=== PATIENT | female | born 1960 | race Caucasian/White ===

== ENCOUNTER → 2016-12-09 | Outpatient (CLI) | payer MEDICAID ==
[~2016-12-09] MED LIST: 'XANAX1 MG PO; AMLODIPINE BESY10 MG PO; ASMANEX220 MCG INH; ATARAX,VISTARIL50 MG PO; BUPROPION HCL150 MG PO; BUPROPION HYDR150 M1 PO; FLUOXETINE20 M1 PO; HYDROXYCHLOROQ200 M1 PO; HYDROXYCHLOROQ200 MG PO; HYDROXYZINE50 MG PO; MAXALT MLT10 MG PO; NORFLEX100 MG PO; OMEPRAZOLE D/R20 MG PO; OMEPRAZOLE20 MG PO; PERCOCET 325 MG1 TA7 PO; PROVENTIL0.09 MG/A1 INH; RIZATRIPTAN BEN10 M1 PO; SPIRIVA -- 3018 MCG INH; SPIRIVA -- 3018 MCG PO; TOPAMAX100 M1 PO; TOPIRAMATE100 MG PO; TORADOL10 MG PO; TRAZADONE HYDR100 MG PO; VENTOLIN0.09 MG/AC INH; XANAX1 MG PO
[2016-12-09 10:03] LABS: BASO # 0.1 10*3/uL (0.0-0.1); BASO % 0.6 % (0.0-1.0); EOS # 0.7 10*3/uL (0.0-0.4); EOS % 5.8 % (1.0-4.0); HEMATOCRIT 43.9 % (37.0-47.0); HEMOGLOBIN 14.2 g/dl (12.0-16.0); LYMPH # 3.9 10*3/uL (1.3-4.4); LYMPH % 35.1 % (27.0-41.0); MEAN CELL VOLUME 95.2 fl (81.0-99.0); MEAN CORPUSCULAR HGB 30.8 pg (27.0-31.0); MEAN CORPUSCULAR HGB CONC 32.3 g/dl (33.0-37.0); MEAN PLATELET VOLUME 9.4 fl (9.6-12.3); MONO # 0.7 10*3/uL (0.1-1.0); MONO % 5.9 % (3.0-9.0); NEUT # 5.8 10*3/uL (2.3-7.9); NEUT % 52.2 % (47.0-73.0); PLATELET COUNT AUTOMATED 254 10*3/uL (130-400); RED BLOOD COUNT 4.61 10*6/uL (4.10-5.10); RED CELL DISTRI WIDTH 13.6 % (0-14.5); WHITE BLOOD COUNT 11.2 10*3/uL (4.8-10.8)
[2016-12-09 10:11] LABS: URINE AMPHETAMINES < 1000 (1000ng/ml); URINE BARBITURATES < 200 (200ng/ml); URINE COCAINE < 300 (300ng/ml)
[2016-12-09 10:22] LABS: HEMOGLOBIN A1c 5.9 % (4.8-5.6)
[2016-12-09 10:29] LABS: ALBUMIN 3.7 gm/dl (3.1-4.5); BILIRUBIN, TOTAL 0.2 mg/dl (0.2-1.0); POTASSIUM 3.4 mmol/L (3.5-5.1); TOTAL PROTEIN 7.9 gm/dL (6.4-8.2)
[2016-12-09 10:36] LABS: THYROID STIM HORMONE (HS) 1.09 uIU/ml (0.358-4.75)
[2016-12-10 05:08] LABS: MICRO ALBUMIN/CRE RATIO <6.5 (0.0-30.0)
== END | disposition home or self-care (01) ==
LOC: LAB 09:24
PROVIDERS: Family Medicine
DX: E11.22 Type 2 diabetes mellitus with diabetic chronic kidney disease (principal); N18.3 Chronic kidney disease, stage 3 (moderate); E78.5 Hyperlipidemia, unspecified; E03.9 Hypothyroidism, unspecified; E55.9 Vitamin D deficiency, unspecified; M35.9 Systemic involvement of connective tissue, unspecified; F99 Mental disorder, not otherwise specified; Z72.0 Tobacco use

== ENCOUNTER → 2017-02-16 | Outpatient (CLI) | payer MEDICAID ==
[2017-02-16 10:12] LABS: BILIRUBIN NEGATIVE (NEGATIVE); BLOOD NEGATIVE (NEGATIVE); CLARITY CLEAR (CLEAR); COLOR YELLOW (YELLOW); GLUCOSE NEGATIVE (NEGATIVE); KETONE TRACE (NEGATIVE); LEUKO ESTERASE NEGATIVE (NEGATIVE); NITRITE NEGATIVE (NEGATIVE); PH 5.5 (5.0-9.0); UROBILINOGEN 0.2 E.U./dl (0.2-1.0)
[2017-02-16 10:17] LABS: HEMATOCRIT 42.3 % (37.0-47.0); HEMOGLOBIN 13.2 g/dl (12.0-16.0)
[2017-02-16 10:36] LABS: BACTERIA 1+; MUCOUS 1+
[2017-02-16 10:39] LABS: CREATININE 1.66 mg/dL (0.55-1.02); MAGNESIUM 2.1 mg/dL (1.5-2.1); PHOSPHOROUS 3.1 mg/dL (2.5-4.9); POTASSIUM 4.5 mmol/L (3.5-5.1)
[2017-02-16 11:18] LABS: VITAMIN D, 25-HYDROXY 20.4 ng/mL (30-100)
[2017-02-16 11:19] LABS: PTH INTACT 33.1 pg/mL (14.0-72.0)
== END | disposition home or self-care (01) ==
LOC: US 12-21 14:00 → LAB 09:12 → US 09:30
PROVIDERS: Internal Medicine Nephrology
DX: N18.3 Chronic kidney disease, stage 3 (moderate) (principal)

== ENCOUNTER → 2017-05-30 | Outpatient (CLI) | payer MEDICAID | END | disposition home or self-care (01) | LOC: RAD 11:12 | DX: M47.896 Other spondylosis, lumbar region (principal); M47.897 Other spondylosis, lumbosacral region ==

== ENCOUNTER → 2018-06-29 | Outpatient (CLI) | payer MEDICAID ==
[2018-06-29 09:38] LABS: BILIRUBIN NEGATIVE (NEGATIVE); BLOOD NEGATIVE (NEGATIVE); CLARITY SL CLOUDY (CLEAR); COLOR YELLOW (YELLOW); GLUCOSE NEGATIVE (NEGATIVE); KETONE NEGATIVE (NEGATIVE); LEUKO ESTERASE TRACE (NEGATIVE); NITRITE NEGATIVE (NEGATIVE); PH 6.5 (5.0-9.0); SPECIFIC GRAVITY 1.015 (1.005-1.030); UROBILINOGEN 0.2 E.U./dl (0.2-1.0)
[2018-06-29 09:42] LABS: HEMATOCRIT 43.7 % (37.0-47.0); HEMOGLOBIN 13.6 g/dl (12.0-16.0)
[2018-06-29 09:56] LABS: BACTERIA 2+; EPITHELIAL CELLS 16-20
[2018-06-29 10:04] LABS: CREATININE 1.23 mg/dL (0.55-1.02); POTASSIUM 3.5 mmol/L (3.5-5.1)
[2018-06-29 11:14] LABS: VITAMIN D, 25-HYDROXY 26.6 ng/mL (30-100)
[2018-06-29 11:15] LABS: PTH INTACT 68.9 pg/mL (18.5-88.0)
[2018-06-30 09:07] LABS: COMPLEMENT C4 001834 29 mg/dL (14-44)
[2018-06-30 10:10] LABS: CREATININE,URINE 112.6 mg/dL (Not Estab.); MICRO ALBUMIN/CRE RATIO <2.7 (0.0-30.0)
[2018-06-30 13:05] LABS: ANTI-DSDNA ANTIBODIES 096339 1 IU/mL (0-9)
== END | disposition home or self-care (01) ==
LOC: LAB 08:39
PROVIDERS: Internal Medicine Nephrology
DX: E87.6 Hypokalemia (principal)